=== PATIENT | female | born 2005 | race Caucasian/White ===

== ENCOUNTER 2025-02-17 14:18 | Emergency (ER) | payer MEDICARE ==
[~2025-02-17] VITALS: Ht 157.5 cm; Wt 53.0 kg
[2025-02-17 14:41] VITALS: O2SAT 100
[2025-02-17 17:04] LABS: BASOPHILS % 0.5 % (0.0-2.0); EOSINOPHILS % 1.8 % (0.0-5.0); HEMATOCRIT. 41.1 % (36.0-48.0); HEMOGLOBIN. 13.9 g/dL (12.0-16.0); LYMPHOCYTES % 39.5 % (20.0-50.0); MEAN PLATELET VOLUME 7.4 fl (7.4-10.4); MONOCYTES % 4.6 % (2.0-8.0); NEUTROPHILS % 53.6 % (40.0-76.0); PLATELET 329 x1000/uL (130-400); RED BLOOD CELL COUNT 4.80 mill/uL (4.2-5.4); RED CELL DISTRIBUTION WIDTH 13.2 % (11.6-14.6)
[2025-02-17 17:08] LABS: CREATININE 0.6 mg/dL (0.6-1.0)
[2025-02-17 17:09] LABS: PROTEIN TOTAL 7.7 g/dL (6.0-8.3); UREA NITROGEN BLOOD 7 mg/dL (9-23)
[2025-02-17 17:10] LABS: ASPARTATE AMINOTRANSFERASE 17 IU/L (<34); B-HCG QUANTITATIVE < 1 mIU/mL (<6)
[2025-02-17 17:11] LABS: BILIRUBIN DIRECT < 0.1 mg/dL (<=3.0); BILIRUBIN TOTAL 0.3 mg/dL (0.1-1.0)
[2025-02-17 17:15] LABS: HCG SCREEN NEGATIVE
[2025-02-17 18:08] VITALS: BP 115/58; PULSE 73; RESP 18; TEMP 36.7; O2SAT 100
== END 2025-02-17 18:09 | disposition home or self-care (01) ==
LOC: ER 14:18
DX: N93.9 Abnormal uterine and vaginal bleeding, unspecified (principal); R10.30 Lower abdominal pain, unspecified; R10.20 Pelvic and perineal pain unspecified side; Z79.899 Other long term (current) drug therapy
CPT/HCPCS: 36415; 76830; 76856; 80048; 80076; 83735; 84702; 84703; 85025; 86850; 86900; 99284